=== PATIENT | female | born 1980 | race Caucasian/White ===

== ENCOUNTER → 2017-09-12 | Outpatient (CLI) | payer BC ==
[~2017-09-12] MED LIST: MULT-506 PO; TRAM-10 PO
--- NOTE | 2017-09-12 10:58 | DIAGNOSTIC IMAGING REPORT ---
L ELBOW MIN 3 VIEWS HISTORY: 37 years-old Female LEFT ELBOW PAIN acute left elbow pain COMPARISON: None available TECHNIQUE: 3 views of the left elbow FINDINGS: No acute fracture, dislocation or significant degenerative changes. No opaque foreign body or large joint effusion. IMPRESSION: No acute fracture or dislocation. The above report was generated using voice recognition software. It may contain grammatical, syntax or spelling errors. Electronically signed by: Mack Adame M.D. 09/12/2017 10:56 AM Dictated Date/Time: 09/12/2017 10:56 AM
== END | disposition home or self-care (01) ==
LOC: C.RDSM 10:44
PROVIDERS: ATTEND Physician Assistant
DX: M25.522 Pain in left elbow (principal)

== ENCOUNTER 2017-10-01 12:05 | Emergency (ER) | payer BC ==
[~2017-10-01] VITALS: Ht 157.5 cm; Wt 81.0 kg
[~2017-10-01 12:05] MED LIST changes: -TRAM-10 PO
[2017-10-01 12:09] VITALS: TEMP 36.6; Ht 157.5 cm; Wt 81.0 kg
--- NOTE | 2017-10-01 13:29 | DIAGNOSTIC IMAGING REPORT ---
CT SCAN OF THE BRAIN WITHOUT IV CONTRAST CLINICAL HISTORY: Fall. Head injury. COMPARISON STUDY: No priors. TECHNIQUE: Unenhanced axial CT scan of the brain is performed from the vertex to the skull base. A dose lowering technique was utilized adhering to the principles of ALARA. FINDINGS: Brain parenchyma: The brain parenchyma is normal in appearance. There is no hemorrhage, mass effect, or evidence of acute territorial ischemia by CT criteria. Martines-white matter is preserved. No extra-axial fluid collection is seen. Ventricles, sulci, cisterns: Normal in configuration. Intracranial vasculature: The visualized intracranial vasculature at the skull base is normal in appearance. Calvarium: There is no depressed calvarial fracture. Sinuses and mastoids: The visualized paranasal sinuses are clear. The mastoid air cells are well pneumatized. Orbits: The bony orbits are grossly intact. IMPRESSION: No acute intracranial abnormality. Electronically signed by: Enrique Callahan M.D. 10/01/2017 1:28 PM Dictated Date/Time: 10/01/2017 1:27 PM
--- NOTE | 2017-10-01 13:32 | DIAGNOSTIC IMAGING REPORT ---
CT SCAN OF THE CERVICAL SPINE CLINICAL HISTORY: Fall. Neck pain. COMPARISON STUDY: No priors. TECHNIQUE: CT scan of the cervical spine is performed from the skull base to the upper thoracic spine. Images are reviewed in the axial, sagittal, and coronal planes. IV contrast was not administered for this examination. A dose lowering technique was utilized adhering to the principles of ALARA. CT DOSE: 1018.49 mGy.cm FINDINGS: Skeletal structures: The skeletal structures are well mineralized. There is no evidence of fracture or subluxation involving the cervical spine. Vertebral body height and alignment are maintained. There is straightening of the cervical lordosis with reversal centered at C5. Small anterior osteophytes are seen in the lower cervical region. The odontoid process and lateral masses are intact. The atlantoaxial articulation is preserved. The spinous processes appear intact. Intervertebral discs: There is mild disc space narrowing at C4-C5 and C5-C6. Central canal: A posterior disc osteophyte complexes at C4-C5, C5-C6, and C6-C7 may contribute to mild acquired compromise of the central canal. Soft tissues: The prevertebral and paraspinous soft tissues are within normal limits. Calvarium: The visualized calvarium at the skull base appears intact. Brain parenchyma: Partially visualized brain parenchyma the skull base is within normal limits. Sinuses and mastoids: The visualized paranasal sinuses are clear. The mastoid air cells are well pneumatized. Lung apices: Clear as visualized. IMPRESSION: There is no evidence of fracture or subluxation involving the cervical spine. Electronically signed by: Enrique Callahan M.D. 10/01/2017 1:30 PM Dictated Date/Time: 10/01/2017 1:28 PM
[2017-10-01] MEDS ORDERED: TRAMADOL HCL 50 MG TAB PO STA (13:34)
[2017-10-01] MEDS ORDERED: ONDANSETRON 4MG OD TAB ONE (13:40)
[2017-10-01] MEDS ORDERED: TRAM-10 PO (14:04)
[2017-10-01 14:11] VITALS: BP 138/80; PULSE 88; O2SAT 99
--- NOTE | 2017-10-02 07:32 | EMERGENCY ROOM VISIT NOTE ---
ED Visit Note First contact with patient: 12:19 Chief Complaint: Head and neck pain. History of Present Illness: Ms. Mario is a 37-year-old white female who ambulates into the ED complaining of head and neck pain following a fall. Patient reports 2 days ago she slipped and fell on ice onto concrete. She reports at the time of the injury she had no lightheaded or dizziness before the fall, at time of the fall she had no loss of consciousness. Patient reports over the last 2 days she has had a progressive headache that was initially mild and has gradually increased in intensity. She describes her pain as a throbbing sensation that starts in the occipital area and is radiating into the biparietal area. She rates her discomfort 7/10. Her pain worsens with exposure to light, loud sounds. She has been using over-the- counter medications without relief of her discomfort. Associated with her headache she reports she is having dizziness, light sensitivity, sound sensitivity, neck pain and nausea and vomiting. As previously noted she is also complaining of cervical spine pain in the area of C6-C7. She describes this as an achy sensation. She does not rate this discomfort. Her pain worsens with palpation and neck flexion. She has not identified any alleviating factors related to the pain. As previously noted she has been using [id number] medication without relief of her discomfort. She denies any upper extremity weakness/numbness/tingling and previous significant cervical spine disease or surgeries. Additionally her reports that at times patient appears confused and has difficulty answering his questions. Review of Systems: As noted above in history of present illness. All body systems were reviewed and found to be negative as noted above. Past Medical History: Gallbladder disease, unspecified hip surgery. Current Medications: Patient denies. Allergies to Medications: Patient denies. Social History: Patient is currently employed; she feels safe in her home environment; she denies tobacco and alcohol use.. Physical Examination: Vital Signs: Date Time Temp Pulse Resp B/P (MAP) Pulse Ox O2 Delivery O2 Flow Rate FiO2 10/01/17 14:11 88 20 138/80 99 10/01/17 12:09 36.6 79 16 140/94 100 Room Air GENERAL: 37-year-old female in mild to moderate distress due to pain, nontoxic- appearing, afebrile and hemodynamically stable. Patient found lying in a dark room. NEUROLOGICAL: Awake, alert and oriented to person, place and time. Answering questions appropriately and following commands. Normal gait. Good hand eye coordination. Romberg test is negative but unstable. Pronator drift test negative. Cranial nerves II through XII grossly intact. Good short-term and long-term recall. Normal rapid alternating movements of the hands. Normal heel coughlin test. Able to spell and count backwards. SKIN: Warm, dry and pink. No soft tissue eruptions or trauma noted. HEENT: Atraumatic and normocephalic. Skull: No gross bony deformity or bony crepitus. Mild tenderness in the occipital area where she fell. No raccoons eyes or saldana signs. No drainage from the ears of the nose; no hemotympanum. Face: No bony deformity, bony crepitus or ecchymosis. PERRLA. EOMI without nystagmus. Sclera white and conjunctiva pink. No malocclusion. No intraoral trauma. Airway patent. Speech is normal and clear. Trachea midline. No jugular venous distention. BACK: Mild tenderness over the C7 vertebral prominence without bony deformity or crepitus. There is also moderate tenderness in the paraspinous musculature bilaterally to the C7 area without palpable spasm. After testing full range of motion of the cervical spine. No tenderness over the thoracic or lumbar spine. No CVA tenderness. THORAX: Lungs sounds are clear to auscultation and equal bilaterally with symmetrical chest wall. ABDOMEN: Flat, soft and nontender. Positive bowel sounds in all quadrants. No guarding, rigidity or organomegaly. EXTREMITIES: Moves all extremities well on command and with purpose. All distal neurovascular statuses are intact and equal bilaterally. 5/5 muscle strength in all movements of the upper extremities. 2+ bicipital and tricipital deep tendon reflexes. ED Course: Patient is assessed as noted above. Patient's medication list was reviewed. Patient was given 50 mg of tramadol by mouth and 4 mg of Zofran ODT. Head CT: Was reviewed by myself and read by the radiologist showing no acute intracranial abnormalities or skull fractures. Cervical Spine CT: Were reviewed by myself and read by the radiologist showing no acute fractures or subluxations. Radiologist does note mild disc narrowing and C4-C5 and C5 and C6. He was also posterior disc osteophytes at C4-C5, C5- C6 and C6-C7. Patient was reassessed multiple times during her stay in the emergency department. Patient was educated about today's findings and instructed on her treatment plan ; she verbalizes understanding and agreement with this plan. Clinical Impression: Concussion. Neck pain. Status post fall. Disposition: Patient discharged home in stable condition accompanied by her ; prior to departure she was reassessed and subjectively reported she was feeling better and rated her discomfort 4/10. Initially my differential diagnosis I considered skull fracture, intracranial bleed, cervical spine fracture, cervical neck strain, and other causes. Plan: Patient was placed on a sliding pain medication scale of ibuprofen, acetaminophen and Ultram for her pain. Patient was prescribed Zofran 4 mg every 6 hours as needed for nausea/vomiting. Patient was encouraged to stay well-hydrated and avoid alcohol. Patient was encouraged to avoid strenuous activities until followed up with concussion clinic or family physician. Patient was encouraged to return to the ED for worsening signs of head injury, worsening pain or any new/concerning symptoms.
== END 2017-10-01 14:13 | disposition home or self-care (01) ==
LOC: C.EDB 12:07 → C.EDD 14:13
DX: S06.0X0A Concussion without loss of consciousness, initial encounter (principal); M54.2 Cervicalgia; W00.2XXA Other fall from one level to another due to ice and snow, initial encounter